=== PATIENT | male | born 1995 | race Caucasian/White ===

== ENCOUNTER 2020-12-22 08:21 | Outpatient (REF) | payer OTHER, SELFPAY | END 2020-12-22 08:22 | disposition home or self-care (01) | LOC: HO.LAB 08:21 | PROVIDERS: Visit Provider Internal Medicine | DX: Z20.822 Contact with and (suspected) exposure to COVID-19 (principal) | CPT/HCPCS: 36415; C9803; U0003 ==

== ENCOUNTER 2021-01-16 07:25 | Emergency (ER) | payer MEDICAID, SELFPAY ==
--- NOTE | ~2021-01-16 | XR_ITS ---
EXAMINATION: XR LUMBOSACRAL SPINE CLINICAL INFORMATION: Back pain COMPARISON: Radiographs lumbar spine 06/30/2017 TECHNIQUE: Three views of the lumbosacral spine. FINDINGS: There is normal lumbar segmentation with 5 nonrib-bearing lumbar vertebrae of normal height and normal lumbar lordosis. There is no lumbar vertebral compression, spondylolisthesis, or disc narrowing. There is probable L5 spondylolysis as previously suspected. The SI joints and visualized sacrum are unremarkable. XR/XR lumbar spine 2-3V IMPRESSION: 1. Suspect L5 spondylolysis. 2. No significant changes from prior exam 06/30/2017.
[2021-01-16 08:44] VITALS: BP 129/83; PULSE 68; RESP 18; TEMP 36.8; O2SAT 100; BMI 34.4
--- NOTE | 2021-01-16 10:33 | ED.BACK ---
HPI - Back Pain/Injury General Chief Complaint: Back Pain/Injury Stated Complaint: BACK PAIN Time Seen by Provider: 01/16/21 10:32 Source: patient Mode of arrival: ambulatory Limitations: no limitations History of Present Illness HPI Narrative: 25-year-old male who hurt his back while he was exercising by doing squats a lifting weight, patient felt pop on his lower back, feeling pain in his lower back radiating to his left lower extremities, no urinary or stool incontinence. Pain is constant for the past 4 days, feeling like aches to his lower back and radiates to his left leg and left buttock and left groin area, no fever or chills or numbness or weakness. Movement and walking makes the pain worse, nothing makes the pain better. Patient had similar pain 4 months ago after exercising at the gym but was resolved after 2 weeks. Related Data Previous Rx's Medication Instructions Recorded ibuprofen 600 mg PO Q8H PRN #30 tab 01/16/21 Allergies Allergy/AdvReac Type Severity Reaction Status Date / Time No Known Allergies Allergy Unverified 08/16/20 17:08 Review of Systems Review of Systems: All other systems are reviewed and are negative Constitutional: Reports as per HPI and Reports no additional constitutional complaints Eyes: Reports as per HPI and Reports no additional eye complaints Reports system reviewed and no additional complaints, except as documented Cardiovascular: Reports as per HPI and Reports no additional cardiovascular complaints Respiratory: Reports as per HPI and Reports no additional respiratory complaints Gastrointestinal: Reports as per HPI and Reports no additional gastrointestinal complaints Genitourinary: Reports no additional female genitourinary complaints Musculoskeletal: Reports no additional musculoskeletal complaints Skin/Breast: Reports system reviewed and no additional complaints, except as docu Psychiatric: Reports no additional psychiatric complaints Endocrine: Reports no additional endocrine complaints Hematologic/Lymphatic: Reports no additional hematologic/lymphatic complaints Allergic/Immunologic: Reports no additional allergic/immunologic complaints Reports system reviewed and no additional complaints, except as documented and Reports Abnormal speech present [facility] Social History Social History Alcohol intake: never Smoking Status: Never smoker Use of substances other than those prescribed or required for medical reasons: No Advance Directives: No Advance Directives Information Provided: No Physical Exam Vital Signs: Vital Signs: Last Vital Signs Temp 98.2 F 01/16/21 08:44 Pulse 68 01/16/21 08:44 Resp 18 01/16/21 08:44 BP 129/83 01/16/21 08:44 Pulse Ox 100 01/16/21 08:44 Body Mass Index 34.4 Vital signs have been reviewed as appeared to be correct. Blood pressure normal. Heart rate normal. Respiration rate normal. Temperature normal. Oxygen saturation normal. Appearance: Alert. Oriented X3. No acute distress. Head: Normal external exam. Normocephalic. Atraumatic. No Moeller signs noted. No raccoon eyes noted Eyes: PERRLA. EOMI. Conjunctiva and sclera normal. Eyelids normal. ENT: TM's Normal. Pharynx normal. Uvula midline. Moist mucous membranes. No trismus noted. No drooling noted. No muffled voice noted. Neck: Normal inspection. Neck supple. FROM. No adenopathy. Thyroid Normal. No meningeal signs. No neck mass noted. CVS: Normal heart rate and rhythm. Heart sound normal. No murmurs noted. Pulses normal throughout. Respiratory: No respiratory distress. Painless inspiration. Breath sounds normal. No wheezes/rales/rhonchi noted. Chest nontender. No accessory muscle usage noted or decreased air movement noted. Abdomen: Soft and nontender. Bowel sounds normal in all 4 quadrants. No distention noted. No organomegaly noted. No visible injury noted. Back: No CVA tenderness. Full range of motion noted. Skin: Skin warm and dry. Normal skin color. Normal skin turgor. No rashes/lesions/lacerations noted. Extremities: No lower extremity edema. Extremities exhibit normal range of motion. Extremities nontender. Neuro: Oriented X 3. No motor deficit. No sensory deficit. Reflexes normal. Perianal sensation is intact. Course Course Course Narrative: Assessment and plan. 25-year-old male status post back injury at the gym, patient have a mild symptoms of lumbar radiculopathy with left sciatica. At this point patient was instructed to rest, NSAIDs, follow-up with PCP. MDM - Back Pain/Injury Imaging Data Lumbar spine x-ray: Radiologist's impression: 1.Suspect L5 spondylolysis. 2. No significant changes from prior exam 06/30/2017. Discharge Plan Discharge Clinical Impression: Lumbar radiculopathy Patient Disposition: Home, Self-Care Instructions: Lumbar Radiculopathy (ED) Additional Instructions: Rest for 2 weeks, no heavy lifting, no squatting exercising. Use ibuprofen. Use heating pad to the lower back. Prescriptions: New ibuprofen 600 mg tablet 600 mg PO Q8H PRN (Reason: pain) Qty: 30 RF: 0 Referrals: Physician,None [Primary Care Provider] - 2 days
== END 2021-01-16 11:29 | disposition home or self-care (01) ==
PROVIDERS: Emergency Provider Emergency Medicine
DX: M54.16 Radiculopathy, lumbar region (principal); Z79.899 Other long term (current) drug therapy
CPT/HCPCS: 72100; 99283; 99284

== ENCOUNTER 2021-03-15 10:30 | Outpatient (REF) | payer MEDICAID, SELFPAY ==
[2021-03-15 11:43] LABS: COVID-19 Test Negative (Negative); IDNOW Serial# 55D5AD1C
== END 2021-03-15 10:31 | disposition home or self-care (01) ==
LOC: HO.LAB 10:30
PROVIDERS: Visit Provider Internal Medicine
DX: Z20.822 Contact with and (suspected) exposure to COVID-19 (principal)
CPT/HCPCS: 36415; 87635; C9803

== ENCOUNTER 2021-09-11 18:08 | Emergency (ER) | payer OTHER, MEDICAID, SELFPAY ==
--- NOTE | ~2021-09-11 | XR_ITS ---
EXAMINATION: XR FOOT, RIGHT CLINICAL INFORMATION: Fell at work and rolled ankle. COMPARISON: Radiograph of the right ankle dated 12/23/2012. TECHNIQUE: AP, lateral, and oblique views of the right foot. FINDINGS: No acute fractures or malalignment. Diffuse soft tissue edema. No radiopaque foreign bodies. No joint effusion. XR/XR foot RT min 3V IMPRESSION: No acute fractures or malalignment.
[2021-09-11 19:21] VITALS: BP 120/83; PULSE 59; RESP 15; TEMP 36.1; O2SAT 100; BMI 35.2
--- NOTE | 2021-09-11 20:34 | ED.LOWEXIN ---
HPI - Extremity Injury (Lower) General Chief Complaint: Extremity Injury, Lower Stated Complaint: work inj Source: patient Mode of arrival: ambulatory Limitations: no limitations History of Present Illness HPI Narrative: Patient presents to ED for right foot pain. Patient states he was moving an object and turned his right foot. Patient denies hearing a popping sound or falling to the ground. Patient denies hitting head or loss of consciousness. Patient states he has been walking with no issues. Related Data Previous Rx's Medication Instructions Recorded ibuprofen 600 mg tablet 600 mg PO Q8H PRN #30 tab 01/16/21 naproxen 500 mg tablet 500 mg PO BID PRN #20 tab 09/11/21 Allergies Allergy/AdvReac Type Severity Reaction Status Date / Time No Known Allergies Allergy Unverified 08/16/20 17:08 Review of Systems Review of Systems: Yes all other systems are reviewed and are negative Constitutional: Constitutional: Reports as per HPI and Reports no additional constitutional complaints Eyes: Eyes: Reports as per HPI and Reports no additional eye complaints ENT: Reports system reviewed and no additional complaints, except as documented and Reports as per HPI Cardiovascular: Cardiovascular: Reports as per HPI and Reports no additional cardiovascular complaints Respiratory: Respiratory: Reports as per HPI and Reports no additional respiratory complaints Gastrointestinal: Gastrointestinal: Reports as per HPI and Reports no additional gastrointestinal complaints Musculoskeletal: Musculoskeletal: Reports no additional musculoskeletal complaints and Reports as per HPI Integumentary/Breasts: Skin/Breast: Reports system reviewed and no additional complaints, except as docu and Reports as per HPI Psychiatric: Psychiatric: Reports no additional psychiatric complaints and Reports as per HPI [facility] Social History Social History Alcohol intake: never Advance Directives: No Physical Exam Vital Signs: Vital Signs: Last Vital Signs Temp 97 F 09/11/21 19:21 Pulse 59 09/11/21 19:21 Resp 15 09/11/21 19:21 BP 120/83 09/11/21 19:21 Pulse Ox 100 09/11/21 19:21 Body Mass Index 35.2 Const: General: cooperative, healthy appearing, comfortable, no acute distress, well developed, alert and awake Orientation/consciousness: patient oriented x3 HENMT: Head: Yes normal to inspection, Yes No palpable skull fracture present, Yes normocephalic, Yes atraumatic and No abrasion Eyes: General: appearance normal, both eyes and all related structures Neck: Neck: Yes normal visual inspection, Yes full ROM, Yes no lymphadenopathy, Yes no meningeal signs, Yes trachea midline, Yes supple and No tender Chest: Chest palpation & inspection: normal inspection of the chest and normal palpation of entire chest wall Resp: Effort & Inspection: normal respiratory effort and able to speak in complete sentences Auscultation: clear to auscultation bilaterally Cardio: Jugular venous distension: no JVD Heart sounds: S1 normal heart sound present and S2 normal heart sound present GI: Inspection: Yes normal to inspection and No abdominal wall ecchymosis Palpation (GI): Soft to palpation, not firm, nontender, no guarding and not rigid : General: No CVA tenderness and Yes no CVA tenderness Back/Spine/Pelvis: Back: no CVA tenderness, No CVA tenderness and No back tenderness Skin: General skin exam: no rashes or lesions noted and elasticity normal Neuro: General: patient oriented x3, gait normal, no meningeal signs and CN's II-XI intact bilaterally Cranial nerves: Yes CN's II-XII intact bilaterally Extrem: General: Yes normal to inspection and Yes full ROM Ankle/foot/toe images: 1. Mild tenderness on palpation. Negative for deformity. Negative for swelling. Pedal pulses intact. Motor/neuro/vascular exam intact. Achilles tendon intact. Negative for any ankle/leg swelling, ecchymosis, redness, or deformity. Psych: Appearance: grossly normal, well kempt and not disheveled Course Course Course Narrative: Patient sent for x-ray Reevaluation(s) Reevaluation #1: X-ray negative for fracture. Patient given Tru wrap patient educated on elevation rest and ice. Time: 20:41 MDM - Extremity Injury (Lower) MDM Narrative Medical decision making narrative: Foot sprain Discharge Plan Discharge Clinical Impression: Foot sprain Patient Disposition: Home, Self-Care Instructions: Foot Sprain (ED) Additional Instructions: X-ray came back negative for fractures. You will be discharged with pain medications. Recommend rest, elevation, and ice. Return to ED for any worsening pain, redness, swelling, calf pain, coughing up blood, fever, chills, bluish black discoloration of lower extremity, shortness of breath, or any other concerning symptoms. Please follow up with PCP. Prescriptions: New naproxen 500 mg tablet 500 mg PO BID PRN (Reason: pain) Qty: 20 RF: 0 No Action ibuprofen 600 mg tablet 600 mg PO Q8H PRN (Reason: pain) Qty: 30 RF: 0 Stand Alone Forms: Work/School Release Interventions: ED Discharge Assessment Last Done: 09/11/21 20:52 Discharge Date/Time: 09/11/21 20:52 Print Language: Italian
== END 2021-09-11 20:52 | disposition home or self-care (01) ==
PROVIDERS: Emergency Provider Emergency Medicine; PCP Internal Medicine
DX: S93.601A Unspecified sprain of right foot, initial encounter (principal); X50.1XXA Overexertion from prolonged static or awkward postures, initial encounter; Y93.9 Activity, unspecified; Y92.9 Unspecified place or not applicable; Y99.9 Unspecified external cause status
CPT/HCPCS: 73630; 99283

== ENCOUNTER 2022-03-10 08:33 | Outpatient (REF) | payer MEDICAID, SELFPAY ==
--- NOTE | ~2022-03-10 | XR_ITS ---
EXAMINATION: XR CERVICAL SPINE CLINICAL INFORMATION: Dorsalgia COMPARISON: None TECHNIQUE: 5 views of the cervical spine, inclusive of flexion and extension views, were obtained. FINDINGS: No acute visible fracture or dislocation. Straightening of normal cervical curvature which may be secondary to patient positioning versus muscle spasm. Neuroforamen are intact bilaterally. Visualized dens is intact. Lateral masses are symmetric. Vertebral body heights and disc spaces are maintained. Prevertebral soft tissues are unremarkable. Posterior elements are intact. Paraspinal soft tissues are unremarkable. Visualized portions of the upper chest are unremarkable. XR/XR cervical spine min 6V IMPRESSION: 1. No acute visible fracture or dislocation. 2. Straightening of normal cervical curvature which may be secondary to patient positioning versus muscle spasm.
== END 2022-03-10 08:34 | disposition home or self-care (01) ==
LOC: HO.XRAY 08:33
PROVIDERS: PCP Internal Medicine; Visit Provider Internal Medicine
DX: M54.9 Dorsalgia, unspecified (principal); R20.0 Anesthesia of skin
CPT/HCPCS: 72052

== ENCOUNTER 2022-08-14 15:41 | Outpatient (REF) | payer MEDICAID, SELFPAY ==
--- NOTE | ~2022-08-14 | XR_ITS ---
EXAMINATION: XR KNEE, LEFT XR TIBIA AND FIBULA, LEFT CLINICAL INFORMATION: Pain. COMPARISON: Radiographs dated 03/15/2012. TECHNIQUE: Four views of the left knee. AP and lateral views of the left tibia and fibula were obtained. FINDINGS: Bony mineralization is normal. There is a mild patella hortensia configuration. The lateral, medial and patellofemoral joint space compartments are well-maintained. No fracture, dislocation or joint effusion is seen. There are accessory ossification centers of the tibial tuberosity. Periosteal thickening is seen, as no abnormal bone erosion. No foreign body or soft tissue swelling is seen. There is a minimal posterior calcaneal spur. On the lateral view, there is a garment overlapping the anterior upper thigh. XR/XR knee LT 4V IMPRESSION: 1. No left knee fracture, dislocation or joint effusion is seen. 2. There is a mild patella hortensia configuration.
--- NOTE | ~2022-08-14 | XR_ITS ---
EXAMINATION: XR KNEE, LEFT XR TIBIA AND FIBULA, LEFT CLINICAL INFORMATION: Pain. COMPARISON: Radiographs dated 03/15/2012. TECHNIQUE: Four views of the left knee. AP and lateral views of the left tibia and fibula were obtained. FINDINGS: Bony mineralization is normal. There is a mild patella hortensia configuration. The lateral, medial and patellofemoral joint space compartments are well-maintained. No fracture, dislocation or joint effusion is seen. There are accessory ossification centers of the tibial tuberosity. Periosteal thickening is seen, as no abnormal bone erosion. No foreign body or soft tissue swelling is seen. There is a minimal posterior calcaneal spur. On the lateral view, there is a garment overlapping the anterior upper thigh. XR/XR tibia fibula LT 2V IMPRESSION: 1. No left knee fracture, dislocation or joint effusion is seen. 2. There is a mild patella hortensia configuration.
== END 2022-08-14 15:42 | disposition home or self-care (01) ==
LOC: HO.XRAY 15:41
PROVIDERS: PCP Internal Medicine; Visit Provider Internal Medicine
DX: M25.562 Pain in left knee (principal)
CPT/HCPCS: 73564; 73590

== ENCOUNTER → 2022-12-18 15:49 | Outpatient (REF) | payer MEDICAID, SELFPAY | LOC: HO.SL 15:49 | PROVIDERS: PCP Internal Medicine; Visit Provider Registered Nurse | DX: R06.83 Snoring (principal); R06.81 Apnea, not elsewhere classified | CPT/HCPCS: 95806 ==

== ENCOUNTER → 2023-01-12 15:00 | Outpatient (BNVA) | payer MEDICAID, SELFPAY | PROVIDERS: PCP Internal Medicine; Visit Provider Hospitalist | DX: G47.34 Idiopathic sleep related nonobstructive alveolar hypoventilation (principal); G47.33 Obstructive sleep apnea (adult) (pediatric); R40.0 Somnolence | CPT/HCPCS: 99202 ==

== ENCOUNTER → 2023-01-15 22:38 | Outpatient (REF) | payer MEDICAID, SELFPAY | LOC: HO.SL 22:38 | PROVIDERS: Visit Provider Hospitalist | DX: G47.33 Obstructive sleep apnea (adult) (pediatric) (principal) | CPT/HCPCS: 95811 ==

== ENCOUNTER 2023-08-18 11:21 | Outpatient (REF) | payer MEDICAID, SELFPAY | END 2023-08-18 11:22 | disposition home or self-care (01) | LOC: HO.RESP 11:21 | PROVIDERS: PCP Internal Medicine; Visit Provider Nurse Practitioner Family | DX: R09.02 Hypoxemia (principal) ==

== ENCOUNTER 2023-09-29 14:27 | Outpatient (AMB) | payer MEDICAID, SELFPAY ==
--- NOTE | 2023-09-29 14:31 | MHC.OFFVIS ---
Intake Vital Signs 09/29/23 14:32 Height 5 ft 10 in Weight 271 lb 2.697 oz BMI 38.9 Pulse 68 Pulse Source Pulse Oximeter Pulse Oximetry (%) 99 Oxygen Delivery Method Room Air Intake Visit Reasons: Shortness of breath Exchange Mechanic Required: No Allergies No Known Allergies Allergy (Unverified 09/29/23 14:33) HPI HPI Comments History of Present Illness Details The patient is a 27-year-old gentleman with a unremarkable past medical history who has been having significant daytime drowsiness. His [place] score is elevated 13/24. The patient does have a new significant other in his life. It appears that she is complaining that he is having significant apneic episodes and snoring is loud. Sometimes she has some day and his abdomen so he does not snore as much but then he gets a lot of back pain. He does have documented apneic episodes and also on waking up tired. The patient did undergo home sleep study which I personally reviewed. It appears that there were some irregularities including a heart rate that varied from a heartbeat of 20 to heart rate of 255. In addition to that, the patient had a hard time sleeping and therefore he did spend some periods where he was awake. Back apnea hypopnea index was only around 2. I do believe that is probably much higher than that in addition to that his pulse ox documented that he was as low as 81% and spent 69 minutes below 88%. Therefore he has significant nocturnal hypoxia. It is likely that this nocturnal hypoxia as from undiagnosed sleep apnea. I believe the home sleep study was not adequate. With an elevated [place] score significant tachycardia and significant hypoxia will be important for the patient to undergo an in-lab sleep study at this time. 09/29/2023 the patient is here for a pulmonary follow-up visit. Overall the patient is doing a lot better. He is exercising regularly and he is waking on weight management. He did get his CPAP in the CPAP therapy has been affecting beneficial. Although he feels like he does not want to get dependent on it so he does not use it all the time. He typically uses it when he feels tired. He states that lately he has been noticing some difficulty with his focus and memory. We did again review his sleep study demonstrating that during the split study he had a REM related sleep disorder. His AHI was up to 85 events an hour during REM sleep. Explained to him that while he does not use the machine he does not get enough REM sleep in therefore the brain gets tired and is hard to focus. Therefore, for now I did recommend that he starts using the CPAP every night for more than 4 hours a night. This way his REM related sleep disorder will be improved. In 6 months he can revisit the possibility of looking for an alternative. He needs to continue working on weight management and exercise. He may be a good candidate for a mandibular device if he has still has a hard time tolerating CPAP. Otherwise from a respiratory status the patient is doing well. [facility] Medical History (Updated 09/29/23 @ 21:50 by Anam Willis MD) Has daytime drowsiness Nocturnal hypoxia Social History (Updated 01/12/23 @ 15:17 by DEAN Croft) Alcohol intake: never Patient Tobacco Use Status: Never used Tobacco Review of Systems Const Reports daytime sleepiness, Reports headache(s), Reports snoring and Reports stops breathing during sleep Eyes Denies change in vision ENT Denies change in voice and Reports headache(s) Card Denies chest pain and Denies dyspnea on exertion Resp Denies dyspnea on exertion, Reports snoring and Denies wheezing GI Reports no additional complaints Musc Reports no additional complaints Skin/Breast Denies rash Neuro Reports no additional complaints and Reports headache(s) Anjum/Lymph Denies easy bruising and Denies lymphadenopathy Aller/Immun Denies wheezing Physical Exam Vital Signs: Last Vital Signs Pulse 68 09/29/23 14:32 Pulse Ox 99 09/29/23 14:32 Oxygen Delivery Method Room Air 09/29/23 14:32 BMI result Body Mass Index 38.9 Const General: comfortable HEENT Head: Yes normocephalic Eyes General: appearance normal, both eyes and all related structures Neck Neck: Yes supple Chest Chest palpation & inspection: normal inspection of the chest Resp Effort & Inspection: normal respiratory effort Auscultation: clear to auscultation bilaterally Cardio Rate: regular rate Rhythm: regular rhythm Heart sounds: S1 normal heart sound present and S2 normal heart sound present GI Auscultation: normal bowel sounds Skin General skin exam: no rashes or lesions noted Extrem General: Yes no clubbing, cyanosis or edema Assessment & Plan Assessment & Plan (1) Has daytime drowsiness: Code(s): R40.0 - Somnolence (2) Nocturnal hypoxia: Code(s): G47.34 - Idiopathic sleep related nonobstructive alveolar hypoventilation (3) YOLANDA (obstructive sleep apnea): Comment: REM related sleep disorder Code(s): G47.33 - Obstructive sleep apnea (adult) (pediatric) Plan continue APAP every night consider oral mandibular device weight management F/U 6 months Coding Level of Care Code Est Pt Level 4 (13260) Diagnoses Has daytime drowsiness R40.0 Nocturnal hypoxia G47.34 YOLANDA (obstructive sleep apnea) G47.33 Time Spent (min) 15
[2023-09-29 14:32] VITALS: PULSE 68; O2SAT 99; BMI 38.9
== END 2023-09-29 15:04 | disposition home or self-care (01) ==
PROVIDERS: PCP Internal Medicine; Visit Provider Hospitalist
DX: R40.0 Somnolence (principal); G47.34 Idiopathic sleep related nonobstructive alveolar hypoventilation; G47.33 Obstructive sleep apnea (adult) (pediatric)
CPT/HCPCS: 99214

== ENCOUNTER → 2023-09-29 14:27 | Outpatient (BNVA) | payer MEDICAID, SELFPAY | PROVIDERS: PCP Internal Medicine; Visit Provider Hospitalist | DX: G47.33 Obstructive sleep apnea (adult) (pediatric) (principal); G47.34 Idiopathic sleep related nonobstructive alveolar hypoventilation; R40.0 Somnolence | CPT/HCPCS: 99212 ==

== ENCOUNTER 2023-10-21 15:45 | Outpatient (REF) | payer SELFPAY ==
[2023-10-21 17:47] LABS: Alanine Aminotransferase 25 U/L (0-40); Albumin Level 4.5 g/dL (3.5-5.0); Alkaline Phosphatase 70 U/L (39-117); Anion Gap 10 (12-20); Aspartate Amino Transferase 29 U/L (5-37); Bilirubin Total 0.4 mg/dL (0.0-1.0); Blood Urea Nitrogen 13 mg/dL (9-16); Calcium 9.5 mg/dL (8.4-10.2); Carbon Dioxide 28 mmol/L (22-29); Chloride 104 mmol/L (96-108); Estimated Glomerular Filt Rate 54; Glucose Random 98 mg/dL (60-115); Sodium 138 mmol/L (135-145); Total Protein 7.6 g/dL (6.5-8.0)
[2023-10-22 05:01] LABS: CT PCR NOT DETECTED (Not Detect.); NG PCR NOT DETECTED (Not Detect.)
[2023-10-23 04:25] LABS: Syphilis Screen Nonreactive (Nonreactive)
[2023-10-23 04:32] LABS: HBS Num1 13.47 mIU/mL (0-7.99); HBsAGNum1 0.33 S/CO (0.00-0.99); HIV AB/AG Nonreactive (Nonreactive); HIV Num 1 0.05 S/CO (0.00-0.99); Hepatitis B Core Antibody Nonreactive (Nonreactive); Hepatitis B Surface Antigen Negative (Negative); ~HepC Num1 0.12 S/CO (0.00-0.79); ~Hepatitis B Surface Antibody REACTIVE (Nonreactive); ~Hepatitis C Antibody Nonreactive (Nonreactive)
== END 2023-10-21 15:46 | disposition home or self-care (01) ==
LOC: HO.HHCL 15:45
PROVIDERS: Visit Provider Nurse Practitioner
DX: Z00.00 Encounter for general adult medical examination without abnormal findings (principal); Z11.4 Encounter for screening for human immunodeficiency virus [HIV]; Z20.2 Contact with and (suspected) exposure to infections with a predominantly sexual mode of transmission
CPT/HCPCS: 0353U; 36415; 80053; 86704; 86706; 86780; 86803; 87340; 87389